=== PATIENT | male | born 1960 | race African-American/Black ===

== ENCOUNTER 2019-08-20 11:29 | Emergency (ER) | payer SELFPAY ==
--- NOTE | 2019-08-20 11:42 | ER Document Report ---
HPI - HPI Time Seen by Provider: 08/20/19 11:32 Notes: Patient is a 59-year-old male presenting with left shoulder pain that is been ongoing since the middle of June. Patient reports at that time he had a fall, was seen in [facility] and he states that shoulder pain is getting worse. He states he is using crutches due to a foot injury and that the usage of crutches is making his shoulder pain worse. Patient reports he has been taking Langley at home without much relief. - REPRODUCTIVE Reproductive: DENIES: : Past Medical History - General Information source: Patient - Social History Smoking Status: Never Smoker Frequency of alcohol use: None Drug Abuse: None Family History: Reviewed & Not Pertinent - Past Medical History Cardiac Medical History: Reports: Hx Hypertension Psychiatric Medical History: Reports: Hx Depression Past Surgical History: Reports: Hx Orthopedic Surgery - Right foearm fx, left tib fx - Immunizations Hx Diphtheria, Pertussis, Tetanus Vaccination: Yes Vertical Provider Document - CONSTITUTIONAL Notes: PHYSICAL EXAMINATION: GENERAL: Well-appearing, well-nourished and in no acute distress. HEAD: Atraumatic, normocephalic. EYES: Pupils equal round extraocular movements intact, conjunctiva are normal. ENT: Nares patent NECK: Normal range of motion LUNGS: No respiratory distress Musculoskeletal: Limited range of motion to left shoulder, tenderness over the anterior and lateral aspects, no crepitus or deformity on palpation. Strong pulses distally. Normal cap refill, normal motor and sensation distally. NEUROLOGICAL: Normal speech, normal gait. PSYCH: Normal mood, normal affect. SKIN: Warm, Dry, normal turgor, no rashes or lesions noted. - INFECTION CONTROL TRAVEL OUTSIDE OF THE [place] IN LAST 30 DAYS: No Course - Re-evaluation Re-evalutation: Shoulder X-Ray 08/20/19 11:35 IMPRESSION: NEGATIVE STUDY OF THE LEFT SHOULDER. NO RADIOGRAPHIC EVIDENCE OF ACUTE INJURY. Shoulder x-ray was negative. Patient likely needs physical therapy and/or MRI. Patient encouraged to go back to his orthopedic that is seeing him for his wrist and foot injury so that he can be appropriately treated. I did give him a short course of Langley, he takes this at home but I feel he would benefit from taking 2 tablets instead of 1 for the next couple of days. Patient verbalized understa nding and agreement with same. The patient's emergency department workup and current diagnosis were explained to the patient and or family. Follow-up instructions were provided. Medications if prescribed were discussed. Instructions for when to return to the emergency department including specific worrisome symptoms were discussed with the patient and/or family. Procedures - Immobilization Left shoulder Pre-Proc Neuro Vasc Exam: Normal Immobilizer type: Sling Performed by: PCT Post-Proc Neuro Vasc Exam: Normal Discharge - Discharge Clinical Impression: Shoulder pain Qualifiers: Chronicity: acute Laterality: left Qualified Code(s): M25.512 - Pain in left shoulder Condition: Stable Disposition: HOME, SELF-CARE Additional Instructions: The x-ray of your shoulder was negative today. I do suspect that you probably have an internal shoulder injury. This could be a ligament injury or perhaps a torn rotator cuff. It is very important for you to call your orthopedic that you have been dealing with and get a follow-up appointment with them. You may need physical therapy or further imaging. Please take ibuprofen 600 mg every 6 hours. Use the narcotic pain medication I have prescribed for severe pain only. Prescriptions: Hydrocodone/Acetaminophen [Langley 5-325 mg Tablet] 1 tab PO Q6H PRN #8 tablet PRN Reason: For Pain Referrals: LOCALMD,NO [Primary Care Provider] - Follow up as needed
--- NOTE | 2019-08-20 12:20 | RADIOLOGY REPORT (SQ) ---
EXAM DESCRIPTION: SHOULDER LEFT 2 OR MORE VIEWS COMPLETED DATE/TIME: 08/20/2019 11:58 am REASON FOR STUDY: left shoulder pain, injury 2 months ago COMPARISON: None. NUMBER OF VIEWS: Three views. TECHNIQUE: Internal rotation, external rotation, and Y view images acquired of the left shoulder. LIMITATIONS: None. FINDINGS: MINERALIZATION: Normal. BONES: No acute fracture. No worrisome bone lesions. JOINTS: No dislocation. VISUALIZED LUNGS AND RIBS: No pneumothorax. No rib fracture. SOFT TISSUES: No radiopaque foreign body. OTHER: No other significant finding. IMPRESSION: NEGATIVE STUDY OF THE LEFT SHOULDER. NO RADIOGRAPHIC EVIDENCE OF ACUTE INJURY. TECHNICAL DOCUMENTATION: JOB ID: [id number] [employer]- All Rights Reserved Reading location - IP/workstation name: [email or web address]
[2019-08-20 13:11] VITALS: BP 154/66
== END 2019-08-20 13:13 | disposition home or self-care (01) ==
LOC: ER 11:29
DX: M25.512 Pain in left shoulder (principal); I10 Essential (primary) hypertension
CPT/HCPCS: 99283; 73030; L3650